=== PATIENT | female | born 1980 | race Caucasian/White ===

== ENCOUNTER 2020-02-22 05:35 | Emergency (ER) | payer MEDICAID ==
[~2020-02-22] VITALS: Ht 160 cm; Wt 65.9 kg
[2020-02-22 05:45] VITALS: Ht 160 cm; Wt 65.9 kg
[2020-02-22] MEDS ORDERED: LISINOPRIL10 MG PO (05:47)
[2020-02-22] MEDS ORDERED: GABAPENTIN100 MG (05:47)
[2020-02-22] MEDS ORDERED: BLEPH-105 ML LEFT EYE (06:09)
[2020-02-22 06:26] VITALS: BP 169/113
== END 2020-02-22 06:26 | disposition home or self-care (01) ==
LOC: D.ER 05:35
DX: H10.9 Unspecified conjunctivitis (principal); E11.9 Type 2 diabetes mellitus without complications; I10 Essential (primary) hypertension; Z72.0 Tobacco use